=== PATIENT | female | born 1975 | race Caucasian/White ===

== ENCOUNTER 2018-10-27 08:50 | Emergency (ER) | payer SELFPAY ==
[2018-10-27 08:54] VITALS: BP 108/69
[2018-10-27] MEDS ORDERED: SOLU-Medrol IM ONE (09:18)
[2018-10-27] MEDS ORDERED: DUONEB *Not for PRN Use IH ONE (09:18)
--- NOTE | 2018-10-27 09:24 | Emergency Department Report ---
ED Shortness of Breath HPI - General Chief Complaint: Dyspnea/Respdistress Stated Complaint: YINKA Time Seen by Provider: 10/27/18 09:17 Source: patient Mode of arrival: Ambulatory Limitations: No Limitations - History of Present Illness Initial Comments: intermittent wheezing, SOB x 1 month coughing no CP, no edema, no travel MD Complaint: shortness of breath, cough -: Gradual, month(s) (1) Severity: moderate Consistency: intermittent Improves With: nothing Worsens With: nothing Associated Symptoms: denies other symptoms, cough Treatments Prior to Arrival: none - Related Data Previous Rx's Medication Instructions Recorded Last Taken Type Acetaminophen [Tylenol Arthritis] 650 mg PO Q6HR PRN #30 tablet.er 07/25/18 Unknown Rx ALBUTEROL Inhaler (OR & NICU) 2 puff IH QID PRN #1 inhalation 09/02/18 Unknown Rx [ProAir HFA Inhaler] Benzonatate [Tessalon Perles] 100 mg PO Q8HR #10 capsule 09/02/18 Unknown Rx Doxycycline [Vibramycin CAP] 100 mg PO Q12HR #14 capsule 09/02/18 Unknown Rx predniSONE [Deltasone] 10 mg PO .TAPER #21 tab 09/02/18 Unknown Rx Albuterol Sulfate [Proair 90 - 180 mcg IH Q4HR PRN #1 10/27/18 Unknown Rx Respiclick] aer.pow.ba predniSONE [Deltasone] 40 mg PO QDAY #10 tab 10/27/18 Unknown Rx Allergies Allergy/AdvReac Type Severity Reaction Status Date / Time No Known Allergies Allergy Verified 07/25/18 12:45 ED Review of Systems ROS: Stated complaint: YINKA Other details as noted in HPI Comment: All other systems reviewed and negative Respiratory: cough, shortness of breath, wheezing ED Past Medical Hx - Surgical History Additional Surgical History: C SECTION - Social History Smoking Status: Never Smoker Substance Use Type: None - Medications Home Medications: Home Medications Medication Instructions Recorded Confirmed Last Taken Type Acetaminophen [Tylenol Arthritis] 650 mg PO Q6HR PRN #30 tablet.er 07/25/18 Unknown Rx ALBUTEROL Inhaler (OR & NICU) 2 puff IH QID PRN #1 inhalation 09/02/18 Unknown Rx [ProAir HFA Inhaler] Benzonatate [Tessalon Perles] 100 mg PO Q8HR #10 capsule 09/02/18 Unknown Rx Doxycycline [Vibramycin CAP] 100 mg PO Q12HR #14 capsule 09/02/18 Unknown Rx predniSONE [Deltasone] 10 mg PO .TAPER #21 tab 09/02/18 Unknown Rx Albuterol Sulfate [Proair 90 - 180 mcg IH Q4HR PRN #1 10/27/18 Unknown Rx Respiclick] aer.pow.ba predniSONE [Deltasone] 40 mg PO QDAY #10 tab 10/27/18 Unknown Rx ED Physical Exam - General Limitations: No Limitations General appearance: alert, in no apparent distress - Head Head exam: Present: atraumatic, normocephalic - Eye Eye exam: Present: normal appearance - ENT ENT exam: Present: mucous membranes moist - Neck Neck exam: Present: normal inspection - Respiratory Respiratory exam: Present: wheezes, decreased breath sounds. Absent: respiratory distress, rhonchi - Cardiovascular Cardiovascular Exam: Present: regular rate, normal rhythm. Absent: systolic murmur, diastolic murmur, rubs, gallop - GI/Abdominal GI/Abdominal exam: Present: soft, normal bowel sounds. Absent: tenderness, guarding - Extremities Exam Extremities exam: Present: normal inspection - Back Exam Back exam: Present: normal inspection - Neurological Exam Neurological exam: Present: alert, oriented X3 - Psychiatric Psychiatric exam: Present: normal affect, normal mood - Skin Skin exam: Present: warm, dry, intact, normal color. Absent: rash ED Course Vital Signs 10/27/18 10/27/18 10/27/18 08:54 09:30 10:04 Temperature 97.7 F Pulse Rate 70 Pulse Rate [ 88 90 Anterior Bilateral Throughout] Respiratory 16 Rate Respiratory 18 16 Rate [Anterior Bilateral Throughout] Blood Pressure 108/69 [Right] O2 Sat by Pulse 97 Oximetry 10/27/18 10:16 Temperature Pulse Rate Pulse Rate [ Anterior Bilateral Throughout] Respiratory 18 Rate Respiratory Rate [Anterior Bilateral Throughout] Blood Pressure [Right] O2 Sat by Pulse Oximetry - Reevaluation(s) Reevaluation #1: 10/27/18 10:32 better after nebs lungs clear fu pulm ED Medical Decision Making - Radiology Data Radiology results: image reviewed interpreted by me: normal cxr - Medical Decision Making wheezing, SOB x 1 month no fever, CP, travel exam- diffuse wheezing, no distress plan for cxr, duoneb, solumedrol IM low risk Wells PE PERC negative - Differential Diagnosis bronchitis, asthma, pneumonia, unlikely PE Critical care attestation.: If time is entered above; I have spent that time in minutes in the direct care of this critically ill patient, excluding procedure time. ED Disposition Clinical Impression: Wheezing Disposition: [id number] TO HOME OR SELFCARE Is pt being admited?: No Condition: Good Instructions: Asthma (ED) Prescriptions: Albuterol Sulfate [Proair Respiclick] 90 - 180 mcg IH Q4HR PRN #1 aer.pow.ba PRN Reason: Wheezing predniSONE [Deltasone] 40 mg PO QDAY #10 tab Referrals: MIQUEL HAMILTON MD [Staff Physician] - 3-5 Days Time of Disposition: 10:33
--- NOTE | 2018-10-27 10:41 | XRay Report ---
FINAL REPORT EXAM: XR CHEST ROUTINE 2V HISTORY: wheezing TECHNIQUE: Frontal and lateral views of the chest. PRIORS: None currently available. FINDINGS: Cardiac silhouette is within normal limits. There is no effusion. There is no pneumothorax. There is no consolidation. There are no suspicious osseous lesions. IMPRESSION: No acute cardiopulmonary findings.
== END 2018-10-27 10:38 | disposition home or self-care (01) ==
LOC: ED 08:50
DX: R05 Cough (principal); R06.2 Wheezing; R06.02 Shortness of breath
CPT/HCPCS: 71046; 94640; 96372; 99283; J2930